=== PATIENT | male | born 1990 | race Caucasian/White ===

== ENCOUNTER 2017-06-16 19:15 | Emergency (ER) | payer OTHER ==
[~2017-06-16] VITALS: Ht 177.8 cm; Wt 81.6 kg
[2017-06-16 19:30] VITALS: BP 149/78
--- NOTE | 2017-06-16 19:43 | Emergency Room Report ---
History of Present Illness General Chief Complaint: Overdose Source: Patient (Aimee Oswald M.D.) Present Illness HPI 27-year-old male with history of polysubstance abuse, brought by police after stuffing pills. Patient states that he was getting pulled over, had a bag of 25 phenobarbital pills, and a few pills of Suboxone, states that he was in a small Ziploc bag and wrapped again with cellophane, swallowed this about 3-1/2 hours ago. Currently complaining of dry mouth, mild abdominal pain, denying any chest pain , shortness of breath, syncopal episode, palpitations, nausea or vomiting (Aimee Oswald M.D.) Allergies: Coded Allergies: HALOPERIDOL (Verified Allergy, Unknown, 06/16/17) Patient History Past Medical History: see triage record Past Surgical History: none Pertinent Family History: none Reviewed Nursing Documentation: PMH: Agreed, PSxH: Agreed (Aimee Oswald M.D. ) Review of Systems All Other Systems: negative except mentioned in HPI (Aimee Oswald M.D.) Physical Exam Vital Signs Date Time Temp Pulse Resp B/P (MAP) Pulse Ox O2 Delivery O2 Flow Rate FiO2 06/16/17 19:21 98.2 112 18 164/79 98 Room Air Sp02 EP Interpretation: reviewed, normal General Appearance: normal inspection, well appearing, no apparent distress, alert, GCS 15, non-toxic Head: normocephalic, atraumatic Eyes: bilateral eye normal inspection, bilateral eye PERRL, bilateral eye EOMI ENT: normal ENT inspection, normal pharynx, normal voice, moist mucus membranes Neck: normal inspection, full range of motion, supple Respiratory: normal inspection, lungs clear, normal breath sounds, no respiratory distress, no retraction, no wheezing, speaking full sentences, chest symmetrical Cardiovascular #1: normal inspection, regular rate, rhythm, no edema, normal capillary refill Cardiovascular #2: 2+ radial (R), 2+ radial (L) Gastrointestinal: normal inspection, non tender, soft, non-distended, no guarding Genitourinary: no CVA tenderness Musculoskeletal: normal inspection, back normal, normal range of motion, non- tender Neurologic: normal inspection, alert, oriented x3, responsive, motor strength/ tone normal, sensory intact, normal gait, speech normal Psychiatric: normal inspection, judgement/insight normal, memory normal Skin: normal inspection, normal color, no rash, warm/dry, well hydrated, normal turgor (Aimee Oswald M.D.) Procedures Additional Procedure Procedure Narrative NG tube placed and left near for whole bowel irrigation No complications X-ray demonstrating that NG tube is in stomach (Aimee Oswald M.D.) Medical Decision Making Diagnostic Impression: Primary Impression: alleged drug ingestion Additional Impression: Drug abuse ER Course 27-year-old male who stuck a bag of phenobarbital pills and Suboxone Hemodynamically stable no respiratory depression Plan: Obtain labs, ua, utox, tox labs, EKG, CXR Abdominal x-ray Possible GoLYTELY ER course: Patient has been monitored during ED stay no resp depression or hypoxia +tachycardia d/w poison control - recommended activate charcoal and whole bowel irrigation NGT placed Disposition: Signed out to Dr. Gómez 27 yo M stuffed bag of phenobarb and suboxone -pending whole bowel irrigation + activated charcoal -pending labs -DC if patient asymptomatic and passes bag, otherwise will need admission for observation Please note that this Emergency Department Report was dictated using [employer] stacker technology software, occasionally this can lead to erroneous entry secondary to interpretation by the dictation equipment. (Aimee Oswald M.D.) ER Course Please initial note for the history exam and presentation At this time the patient has been under observation for over 11 hours in the emergency room Patient had also reported to take the phenobarbital 4 hours prior to arrival On the reevaluation in the morning patient is awake alert appropriate He states he feels mildly anxious and would appreciate medication for that At this time he reports to me that he did not take any phenobarbital, states that he said that so he wouldn't have to go to longterm. Patient does admit to taking speed Denies any chest pain or shortness of breath Denies any focal weakness Given the extensive observation in the emergency room Repeat KUB was obtained Clinically the patient's abdomen remains soft KUB also does not show any acute pathology Patient is stable for continued observation under police custody [facility] Theresa.Amanda followup in the morning Labs Test 06/16/17 21:25 White Blood Count 12.9 K/UL (4.8-10.8) Red Blood Count 3.65 M/UL (4.70-6.10) Hemoglobin 12.0 G/DL (14.2-18.0) Hematocrit 35.2 % (42.0-52.0) Mean Corpuscular Volume 96 FL (80-99) Mean Corpuscular Hemoglobin 33.0 PG (27.0-31.0) Mean Corpuscular Hemoglobin Concent 34.2 G/DL (32.0-36.0) Red Cell Distribution Width 12.3 % (11.6-14.8) Platelet Count 360 K/UL (150-450) Mean Platelet Volume 5.7 FL (6.5-10.1) Neutrophils (%) (Auto) 69.6 % (45.0-75.0) Lymphocytes (%) (Auto) 14.6 % (20.0-45.0) Monocytes (%) (Auto) 5.2 % (1.0-10.0) Eosinophils (%) (Auto) 9.3 % (0.0-3.0) Basophils (%) (Auto) 1.3 % (0.0-2.0) Sodium Level 138 mEQ/L (135-145) Potassium Level 4.5 mEQ/L (3.4-4.9) Chloride Level 99 mEQ/L (98-107) Carbon Dioxide Level 28 mEQ/L (20-30) Anion Gap 11 (5-15) Blood Urea Nitrogen 12 mg/dL (7-23) Creatinine 0.8 mg/dL (0.7-1.2) Estimat Glomerular Filtration Rate > 60 mL/min (>60) Glucose Level 96 mg/dL (74-106) Calcium Level 9.1 mg/dL (8.6-10.2) Total Bilirubin 0.3 mg/dL (0.0-1.2) Aspartate Amino Transf (AST/SGOT) 29 U/L (5-40) Alanine Aminotransferase (ALT/SGPT) 52 U/L (3-41) Alkaline Phosphatase 70 U/L (40-129) Total Protein 7.6 g/dL (6.6-8.7) Albumin 3.9 g/dL (3.5-5.2) Globulin 3.7 g/dL Albumin/Globulin Ratio 1.0 (1.0-2.7) Salicylates Level < 1 mg/dL (10-30) Urine Opiates Screen Positive (NEGATIVE) Acetaminophen Level < 10 ug/mL (10-30) Urine Barbiturates Screen Negative (NEGATIVE) Phencyclidine (PCP) Screen Negative (NEGATIVE) Urine Amphetamines Screen Positive (NEGATIVE) Phenobarbital Level < 2.4 ug/mL (20.0-40.0) Urine Benzodiazepines Screen Negative (NEGATIVE) Urine Cocaine Screen Negative (NEGATIVE) Urine Marijuana (THC) Screen Negative (NEGATIVE) Serum Alcohol < 10 mg/dL (NARCISA DENT D.Tavo) EKG Diagnostic Results Rate: tachycardiac Rhythm: NSR ST Segments: no acute changes ASA given to the pt in ED: No (Aimee Oswald M.D.) Rhythm Strip Diag. Results EP Interpretation: yes Rate: 103 Rhythm: NSR, no PVC's, no ectopy (Aimee Oswald M.D.) Other X-Ray Diagnostic Results Other X-Ray Diagnostic Results #1: X-Ray ordered: KUB #1 # of Views/Limited Vs Complete: 1 View Indication: Other EP Interpretation: Yes Interpretation: other - no foreign body seen Impression: No acute disease Electronically Signed by: Electronically signed by Aimee Oswald MD Other X-Ray Diagnostic Results #2: X-Ray ordered: KUB # of Views/Limited Vs Complete: 1 View Indication: Other Interpretation: other - NGT in stomach Impression: Other - NGT ins tomach Electronically Signed by: Electronically signed by Aimee Oswald MD (Aimee Oswald M.D.) Other X-Ray Diagnostic Results : X-Ray ordered: KUB # of Views/Limited Vs Complete: 1 View Indication: Other - followup EP Interpretation: Yes Interpretation: no dislocation, no soft tissue swelling, nonspecific bowel gas, no sbo Impression: No acute disease Electronically Signed by: Narcisa Dent DO ([email or web address]) Last Vital Signs Date Time Temp Pulse Resp B/P (MAP) Pulse Ox O2 Delivery O2 Flow Rate FiO2 06/16/17 19:21 98.2 112 18 164/79 98 Room Air (Aimee Oswald M.D.) Status: improved (NARCISA DENT.Tavo) Disposition: D/C TO [facility] Condition: Improved Additional Instructions: Followup [facility] in the morning return with any worsening symptoms Aimee Oswald M.D. Jun 16, 2017 19:43 NARCISA DENT D.O. Jun 17, 2017 07:09
[2017-06-16] MEDS ORDERED: Nulytely 4L ORAL ONE (20:00)
[2017-06-16] MEDS ORDERED: Activated Charcoal 50gm/240ml Btl ORAL ONE (20:00)
[2017-06-16 21:46] LABS: BASOPHILS % (AUTO) 1.3 % (0.0-2.0); EOSINOPHILS % (AUTO) 9.3 % (0.0-3.0); LYMPHOCYTES % (AUTO) 14.6 % (20.0-45.0); MEAN CORPUSCULAR HGB CONC 34.2 G/DL (32.0-36.0); MEAN CORPUSCULAR VOLUME 96 FL (80-99); MEAN PLATELET VOLUME 5.7 FL (6.5-10.1); MONOCYTES % (AUTO) 5.2 % (1.0-10.0); NEUTROPHILS % (AUTO) 69.6 % (45.0-75.0); PLATELET COUNT 360 K/UL (150-450); RED BLOOD COUNT 3.65 M/UL (4.70-6.10); RED CELL DISTRIBUTION WIDTH 12.3 % (11.6-14.8); WHITE BLOOD COUNT 12.9 K/UL (4.8-10.8)
[2017-06-16 22:03] LABS: ACETAMINOPHEN < 10 ug/mL (10-30); ALANINE AMINOTRANSFERASE 52 U/L (3-41); ALCOHOL < 10 mg/dL; ANION GAP 11 (5-15); ASPARTATE AMINO TRANSFERASE 29 U/L (5-40); CALCIUM 9.1 mg/dL (8.6-10.2); CARBON DIOXIDE 28 mEQ/L (20-30); CHLORIDE 99 mEQ/L (98-107); CREATININE 0.8 mg/dL (0.7-1.2); GLOMERULAR FILTRATION RATE > 60 mL/min (>60); HEMOLYSIS 17; POTASSIUM 4.5 mEQ/L (3.4-4.9); SODIUM 138 mEQ/L (135-145); TOTAL PROTEIN 7.6 g/dL (6.6-8.7)
[2017-06-16 22:34] VITALS: BP 143/87
[2017-06-17] VITALS (7 sets, daily range): BP systolic 124–142; BP diastolic 69–89
[2017-06-17] MEDS ORDERED: LORazepam 1mg tab ORAL ONE (07:15)
--- NOTE | 2017-06-17 09:50 | Diagnostic Imaging Report ---
Indication: SCREEN Technique: One view of the chest Comparison: 06/16/2017 Findings: Previously demonstrated nasogastric tube is no longer evident. Bowel gas pattern is unremarkable. No unusual masses or calcifications Impression: Negative Note interim nasogastric tube removal
--- NOTE | 2017-06-17 10:15 | Diagnostic Imaging Report ---
Indication: PAIN, status post nasogastric tube placement Technique: Supine view of the abdomen Comparison: 45 minutes earlier Findings: Nasogastric tube tip projects at the level gastric fundus. Proximal port projects at or just beyond the gastroesophageal junction. The bowel gas pattern is unremarkable. Impression: Borderline high position of nasogastric tube. No acute process
--- NOTE | 2017-06-17 10:28 | Diagnostic Imaging Report ---
Indication: PAIN, suspected ingested foreign body Technique: Supine view of the abdomen Comparison: none Findings: Bowel gas pattern is unremarkable. No unusual masses or calcifications. Impression: No acute process Negative for evidence of radiopaque foreign body This agrees with the preliminary interpretation provided overnight by [facility].
--- NOTE | 2017-06-19 15:57 | Cardiology Report ---
APPROVED REPORT EKG Measurement Heart [id number] Normal sinus rhythm Normal ECG
== END 2017-06-17 07:33 ==
LOC: EMR 19:30
DX: F19.10 Other psychoactive substance abuse, uncomplicated (principal); R00.0 Tachycardia, unspecified
CPT/HCPCS: 36415; 74000; 80053; 80184; 80300; 80329; 82962; 85025; 93005; 99284